=== PATIENT | female | born 1955 | race Caucasian/White ===

== ENCOUNTER 2024-02-04 09:10 | Emergency (ER) | payer OTHER ==
[2024-02-04] MEDS: MORPHINE SULFATE 4 MG/ML SYRINGE IVP STA ×2 (10:16→13:36)
[2024-02-04 10:25] LABS: Anisocytosis Slight; Basophils % (A) 1 %; Eosinophils # (A) 0.2 k/uL (0-0.7); Eosinophils % (A) 2 %; HCT 38.1 % (34.0-46.0); HGB 12.4 gm/dL (11.4-16.0); Lymphocytes # (A) 1.3 k/uL (1.0-4.8); Lymphocytes % (A) 18 %; MCH 25.5 pg (25.0-35.0); MCHC 32.5 g/dL (31.0-37.0); MCV 78.7 fL (80.0-100.0); Mean Platelet Volume 7.4; Microcytosis Slight; Monocytes # (A) 0.3 k/uL (0-1.0); Monocytes % (A) 4 %; Neutrophils # (A) 5.4 k/uL (1.3-7.7); Neutrophils % (A) 73 %; Platelet Count 322 k/uL (150-450); RBC 4.84 m/uL (3.80-5.40); RDW 16.7 % (11.5-15.5); WBC 7.3 k/uL (3.8-10.6)
[2024-02-04 10:28] LABS: ALT 20 U/L (4-34); AST 20 U/L (14-36); African American GFR (CKD) >90 (>60 ml/min/1.73 sqM); Albumin 4.5 g/dL (3.5-5.0); Alkaline Phosphatase 77 U/L (38-126); Anion Gap 9 mmol/L; Blood Urea Nitrogen 29 mg/dL (7-17); Calcium 10.1 mg/dL (8.4-10.2); Carbon Dioxide 23 mmol/L (22-30); Chloride 106 mmol/L (98-107); Glucose 111 mg/dL (74-99); Non-African American GFR(CKD) >90 (>60 ml/min/1.73 sqM); Potassium 4.4 mmol/L (3.5-5.1); Sodium 138 mmol/L (137-145); Total Bilirubin 0.4 mg/dL (0.2-1.3); Total Protein 7.3 g/dL (6.3-8.2)
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
[2024-02-04 12:03] VITALS: RESP 18
[2024-02-04 12:16] VITALS: PULSE 61
[2024-02-04 13:44] VITALS: BP 161/90; TEMP 98.7
== END 2024-02-04 14:02 | disposition home or self-care (01) ==
LOC: EC 09:10
DX: S09.90XA Unspecified injury of head, initial encounter (principal); M54.2 Cervicalgia; M25.571 Pain in right ankle and joints of right foot; M25.562 Pain in left knee; Z88.1 Allergy status to other antibiotic agents; Z88.5 Allergy status to narcotic agent; V49.40XA Driver injured in collision with unspecified motor vehicles in traffic accident, initial encounter
CPT/HCPCS: 36415; 93005; 80053; 85025; 73030; 73562; 73610; 72125; 70450; 99284; 96374; 96376; J2270